=== PATIENT | female | born 1960 | race American Indian/Alaskan Native ===

== ENCOUNTER 2018-03-09 15:15 | Outpatient (CLI) | payer OTHER | END 2018-03-09 15:16 | disposition home or self-care (01) | LOC: LABHHL 15:15 | PROVIDERS: ATTEND Surgery | DX: N63.21 Unspecified lump in the left breast, upper outer quadrant (principal) | CPT/HCPCS: 88112; 88305; 88342; 88361 ==

== ENCOUNTER 2018-04-20 15:24 | Inpatient (IN) | payer OTHER ==
--- NOTE | 2018-04-19 13:15 | Anesthesia Consultation ---
Anesthesia Consult and Med Hx Date of service: 04/19/18 - Airway Anesthetic Teeth Evaluation: Good, Poor ROM Head & Neck: Adequate Mental/Hyoid Distance: Adequate Mallampati Class: Class II Intubation Access Assessment: Probably Good - Pulmonary Exam CTA: Yes - Cardiac Exam Cardiac Exam: RRR - Pre-Operative Health Status ASA Pre-Surgery Classification: ASA3 Proposed Anesthetic Plan: General - Cardiovascular System Hx Hypertension: No Hx Cardia Arrhythmia: No - Central Nervous System Hx Neuromuscular Disorder: No - Endocrine Hx Thyroid Disease: Yes Hx Hypothyroidism: Yes - Hematic Hx Sickle Cell Disease: Yes (sickle cell trait) - Other Systems Hx Cancer: Yes (breast cancer)
--- NOTE | 2018-04-19 13:16 | Anesthesia Day of Surgery ---
Anesthesia Day of Surgery - Day of Surgery Patient H&P Reviewed: Yes Patient is NPO: Yes Beta Blockers: No Cardiac Clearance: No Pulmonary Clearance: No
[~2018-04-20 15:24] MED LIST: LACTATED RINGERS 1,000 ML IV SCH
[2018-04-20 16:32] LABS: Hematocrit 30.3 % (30.3-42.9); Hemoglobin 10.5 gm/dl (10.1-14.3); Mean Corpuscular HGB Conc 35 % (30-34); Mean Corpuscular Hemoglobin 33 pg (28-32); Mean Corpuscular Volume 95 fl (79-97); Platelet Count 190 K/mm3 (140-440); Red Blood Count 3.21 M/mm3 (3.65-5.03); Red Cell Distribution Width 14.3 % (13.2-15.2)
[2018-04-20] MEDS ORDERED: MORPHINE IV PRN (16:36)
[2018-04-20] MEDS ORDERED: SODIUM CHLORIDE FLUSH SYRINGE 10 ML IV PRN (16:36)
[2018-04-20] MEDS ORDERED: ZOFRAN IV PRN (16:36)
[2018-04-20] MEDS ORDERED: PERCOCET 5/325 PO PRN (16:36)
[2018-04-20] MEDS ORDERED: TYLENOL PO PRN (16:36)
[2018-04-20 16:48] LABS: Alanine Aminotransferase 15 units/L (7-56); Albumin 4.3 g/dL (3.9-5); BUN/Creatinine Ratio 14; Blood Urea Nitrogen 13 mg/dL (7-17); Calcium 9.8 mg/dL (8.4-10.2); Hemolysis Index 4
[2018-04-20 17:09] LABS: Basophils % (Auto) 0.8 % (0.0-1.8); Eosinophils # (Auto) 0.1 K/mm3 (0.0-0.4); Eosinophils % (Auto) 1.9 % (0.0-4.3); Hematocrit 30.1 % (30.3-42.9); Hemoglobin 10.6 gm/dl (10.1-14.3); Lymphocytes % (Auto) 17.9 % (13.4-35.0); Mean Corpuscular HGB Conc 35 % (30-34); Mean Corpuscular Hemoglobin 33 pg (28-32); Mean Corpuscular Volume 94 fl (79-97); Monocytes # (Auto) 0.4 K/mm3 (0.0-0.8); Platelet Count 189 K/mm3 (140-440); Red Cell Distribution Width 14.1 % (13.2-15.2)
[2018-04-20] MEDS: D5NS 1,000 ML IV SCH (18:10)
[2018-04-20] MEDS: PEPCID PO SCH (21:51)
[2018-04-20] MEDS: SODIUM CHLORIDE FLUSH SYRINGE 10 ML IV SCH (21:52)
--- NOTE | 2018-04-20 23:13 | Event Note ---
Date: 04/20/18 See history and physical in the reports Severe hypothyroidism Left breast cancer due for mastectomy on April [address] Solitario
--- NOTE | 2018-04-21 00:19 | History and Physical Report ---
CHIEF COMPLAINT: Very high TSH in the 90s. HISTORY OF PRESENT ILLNESS: A 58-year-old female with recently diagnosed with breast cancer sent in for her severe hypothyroidism. The patient has history of hypothyroidism, but stopped taking her Synthroid pill for the last about 1 year. The patient was on Synthroid 400 mcg. The patient felt that it was not necessary and stopped the Synthroid pill. Of late, the patient has been feeling weak. Her PCP is Dr. Babcock, did her labs and the TSH was in the mid-90s. Hence, the patient was sent here for IV Synthroid. Other than feeling weak and increasing fatigue, the patient does not have any other symptoms. PAST MEDICAL HISTORY: Past medical history is significant for hypothyroidism, left breast cancer and hyperpigmentation of the right neck. CURRENT MEDICATIONS: Synthroid 100 mcg, which she is not taking. PAST SURGICAL HISTORY: None. Due for left breast mastectomy on 04/25/2018. FAMILY HISTORY: No hypertension. SOCIAL HISTORY: She does not smoke. No alcohol, no recreational drugs. REVIEW OF SYSTEMS: Review of systems is significant for feeling weak and tired easily. Otherwise, review of systems is negative. Also, has a left breast mass. PHYSICAL EXAMINATION: GENERAL: Elderly female, cooperative during examination. VITAL SIGNS: Blood pressure is 98/72, temperature is 97.9, pulse is 56 and 62, blood pressure is 105/63. HEENT: Unremarkable. NECK: Supple, no lymphadenopathy, no thyromegaly. LUNGS: Are clear to auscultation and percussion. Good air entry. CARDIOVASCULAR: S1, S2 heard, no gallop, no murmur, no rub. Apical impulse in left fifth intercostal space and midclavicular line. ABDOMEN: Soft and benign. No hepatosplenomegaly. No guarding, no rigidity. Hernial orifices are normal. EXTREMITIES: Good pedal pulses. No pedal edema. CENTRAL NERVOUS SYSTEM: Alert and oriented x 4, nonfocal examination. LABORATORY DATA: White count is 5500, H and H is 10.6 and 30.1, MCH is 33, MCHC 35. Sodium is 140, potassium is 4.8, chloride is 101.9, bicarbonate is 28. BUN and creatinine is 13 and 0.9. Total protein is 8.7. TSH is 91.110. Free T4 is 0.39. ASSESSMENT AND PLAN: 1. Severe hypothyroidism. The patient started on IV Synthroid and p.o. Synthroid at the same time. Monitor TSH. The patient to be discharged when TSH is at least in the high single digits. 2. Skin hyperpigmentation. The patient to be treated with cortisone cream. 3. Left breast cancer. The patient is due for mastectomy on Monday. The patient needs medical clearance and discharge before Monday. The patient to follow with Dr. Solitario. 4. Deep venous thrombosis prophylaxis. Lovenox 40 mg subcutaneous daily. JOB# [id number] GWS/NTS
[2018-04-21] MEDS: D5NS 1,000 ML IV SCH (03:17)
[2018-04-21] MEDS: SYNTHROID IV SCH (06:16)
--- NOTE | 2018-04-21 08:11 | Progress Note ---
Assessment and Plan Assessment and plan: 58-year-old female with medical history significant for recently diagnosed breast cancer, hypothyroidism was sent from her primary care physician for the management of hypothyroidism. Patient has history of hypothyroidism and was not taking her Synthroid. Her TSH at presentation was 91. Patient's complaint is feeling tired. Patient has hyperpigmentation on the neck Severe hypothyroidism - Patient is on IV Synthroid - TSH level is in the mid 90s - I am not expecting a dramatic TSH change immediately, so I'll discharge her once her symptoms are relieved - Patient is currently on IV Synthroid, will change to by mouth Synthroid Hyperpigmentation on the neck - Patient is on cortisone cream Bradycardia - Due to hypothyroidism Breast cancer - patient is followed by Dr Solitario and will have surgery as an O/P Malnutrition - We'll put nutrition consult DVT prophylaxis - On Lovenox Disposition - Continue inpatient care, if symptoms improved we'll discharge her tomorrow with by mouth levothyroxine History Interval history: Patient was seen and evaluated this morning, patient didn't have any complaints. Hospitalist Physical - Physical exam Narrative exam: Not in cardiopulmonary distress. The patient appeared well nourished and normally developed. Vital signs as documented. Head exam is unremarkable. No scleral icterus . Neck is without jugular venous distension, thyromegaly, or carotid bruits. Lungs are clear to auscultation. Cardiac exam reveals regular rate and Rhythm. First and second heart sounds normal. No murmurs, rubs or gallops. Abdominal exam reveals normal bowel sounds, no masses, no organomegaly and no aortic enlargement. Extremities are nonedematous and both femoral and pedal pulses are normal. BRONZE CHASER: Alert and oriented 3. No focal weakness. - Constitutional Vitals: Temp Pulse Resp BP Pulse Ox 97.9 F 54 L 19 102/65 98 04/21/18 06:01 04/21/18 06:01 04/21/18 06:01 04/21/18 06:01 04/21/18 06:01 Results - Labs CBC & Chem 7: 04/20/18 16:00 04/20/18 15:57 Labs: Laboratory Last Values WBC 5.5 K/mm3 (4.5-11.0) 04/20/18 16:00 RBC 3.20 M/mm3 (3.65-5.03) L 04/20/18 16:00 Hgb 10.6 gm/dl (10.1-14.3) 04/20/18 16:00 Hct 30.1 % (30.3-42.9) L 04/20/18 16:00 MCV 94 fl (79-97) 04/20/18 16:00 MCH 33 pg (28-32) H 04/20/18 16:00 MCHC 35 % (30-34) H 04/20/18 16:00 RDW 14.1 % (13.2-15.2) 04/20/18 16:00 Plt Count 189 K/mm3 (140-440) 04/20/18 16:00 Lymph % (Auto) 17.9 % (13.4-35.0) 04/20/18 16:00 [place] % (Auto) 8.0 % (0.0-7.3) H 04/20/18 16:00 Eos % (Auto) 1.9 % (0.0-4.3) 04/20/18 16:00 Baso % (Auto) 0.8 % (0.0-1.8) 04/20/18 16:00 Lymph # 1.0 K/mm3 (1.2-5.4) L 04/20/18 16:00 [place] # 0.4 K/mm3 (0.0-0.8) 04/20/18 16:00 Eos # 0.1 K/mm3 (0.0-0.4) 04/20/18 16:00 Baso # 0.0 K/mm3 (0.0-0.1) 04/20/18 16:00 Seg Neutrophils % 71.4 % (40.0-70.0) H 04/20/18 16:00 Seg Neutrophils # 3.9 K/mm3 (1.8-7.7) 04/20/18 16:00 Sodium 140 mmol/L (137-145) 04/20/18 15:57 Potassium 4.8 mmol/L (3.6-5.0) 04/20/18 15:57 Chloride 101.9 mmol/L (98-107) 04/20/18 15:57 Carbon Dioxide 28 mmol/L (22-30) 04/20/18 15:57 Anion Gap 15 mmol/L 04/20/18 15:57 BUN 13 mg/dL (7-17) 04/20/18 15:57 Creatinine 0.9 mg/dL (0.7-1.2) 04/20/18 15:57 Estimated GFR > 60 ml/min 04/20/18 15:57 BUN/Creatinine Ratio 14 % 04/20/18 15:57 Glucose 88 mg/dL (65-100) 04/20/18 15:57 Hemoglobin A1c 5.3 % (4-6) 04/20/18 16:00 Calcium 9.8 mg/dL (8.4-10.2) 04/20/18 15:57 Phosphorus 2.70 mg/dL (2.5-4.5) 04/20/18 15:57 Magnesium 2.30 mg/dL (1.7-2.3) 04/20/18 15:57 Total Bilirubin 0.60 mg/dL (0.1-1.2) 04/20/18 15:57 AST 30 units/L (5-40) 04/20/18 15:57 ALT 15 units/L (7-56) 04/20/18 15:57 Alkaline Phosphatase 77 units/L (35-129) 04/20/18 15:57 Total Protein 8.7 g/dL (6.3-8.2) H 04/20/18 15:57 Albumin 4.3 g/dL (3.9-5) 04/20/18 15:57 Albumin/Globulin Ratio 1.0 % 04/20/18 15:57 TSH 96.310 mlU/mL (0.270-4.200) H 04/20/18 23:59 Free T4 0.39 ng/dL (0.76-1.46) L 04/20/18 18:15
[2018-04-21] MEDS: PEPCID PO SCH ×2 (09:32→21:21)
[2018-04-21] MEDS: SODIUM CHLORIDE FLUSH SYRINGE 10 ML IV SCH ×2 (09:32→21:22)
[2018-04-21] MEDS ORDERED: NON-FORMULARY (Anastrozole [Arimidex] 1 MG) PO SCH (10:00)
[2018-04-21] MEDS ORDERED: SYNTHROID PO SCH (10:00)
[2018-04-21] MEDS ORDERED: LOVENOX SUB-Q SCH (22:00)
[2018-04-22 06:11] VITALS: BP 121/71
[2018-04-22] MEDS: SYNTHROID IV SCH (06:22)
--- NOTE | 2018-04-22 07:23 | Discharge Summary ---
Providers - Providers Date of Admission: 04/20/18 15:24 Attending physician: DANISH ARTHUR MD 04/20/18 Consult to Case Management [CONS] Routine Services Needed at Discharge: Methods Study Analyst Notified:: moo 04/21/18 08:14 Consult to Dietitian/Nutrition [CONS] Routine Physician Instructions: Reason For Exam: Reason for Consult: Malnutrition Primary care physician: GARY VEGA Hospitalization Reason for admission: Hypothyroidism Disposition: DC-01 TO HOME OR SELFCARE Time spent for discharge: 35 minutes - Discharge Diagnoses (1) Hypothyroidism (acquired) Status: Acute (2) Breast cancer Status: Acute Core Measure Documentation - Palliative Care Palliative Care/ Comfort Measures: Not Applicable - Core Measures Any of the following diagnoses?: none Exam - Physical Exam Narrative exam: Not in cardiopulmonary distress. The patient appeared well nourished and normally developed. Vital signs as documented. Head exam is unremarkable. No scleral icterus . Neck is without jugular venous distension, thyromegaly, or carotid bruits. Lungs are clear to auscultation. Cardiac exam reveals regular rate and Rhythm. First and second heart sounds normal. No murmurs, rubs or gallops. Abdominal exam reveals normal bowel sounds, no masses, no organomegaly and no aortic enlargement. Extremities are nonedematous and both femoral and pedal pulses are normal. RAMP FLIGHT ATTENDANT: Alert and oriented 3. No focal weakness. - Constitutional Vitals: Temp Pulse Resp BP Pulse Ox 97.7 F 49 L 18 121/71 100 04/22/18 06:00 04/22/18 06:00 04/22/18 06:00 04/22/18 06:00 04/22/18 06:00 Plan Activity: no restrictions Weight Bearing Status: Full Weight Bearing Diet: regular Follow up with: GARY VEGA [Primary Care Provider] - 7 Days Prescriptions: Levothyroxine [Synthroid] 100 mcg PO QAM #30 tablet
[2018-04-22] MEDS: SODIUM CHLORIDE FLUSH SYRINGE 10 ML IV SCH (09:18)
[2018-04-22] MEDS: PEPCID PO SCH (09:18)
== END 2018-04-22 11:35 | disposition home or self-care (01) | DRG 644 ==
LOC: 3A 15:24 → EDSTATUS 04-25 10:00
PROVIDERS: ADMIT Internal Medicine; ATTEND Internal Medicine
DX: E03.9 Hypothyroidism, unspecified (principal); E46 Unspecified protein-calorie malnutrition; L91.9 Hypertrophic disorder of the skin, unspecified; L81.8 Other specified disorders of pigmentation; D57.3 Sickle-cell trait; R00.1 Bradycardia, unspecified; Z88.8 Allergy status to other drugs, medicaments and biological substances; Z88.5 Allergy status to narcotic agent; Z68.25 Body mass index [BMI] 25.0-25.9, adult; C50.912 Malignant neoplasm of unspecified site of left female breast
CPT/HCPCS: 36415; 80053; 83036; 83735; 84100; 84439; 84443; 85025; 85027; J1650; J7042

== ENCOUNTER 2018-08-23 08:41 | Outpatient (CLI) | payer OTHER ==
--- NOTE | 2018-08-27 12:15 | PET Report ---
PET/CT:08/23/18 08:41:00 CLINICAL: Left breast cancer restaging. RADIOPHARMACEUTICAL: 13.058mCi F18-FDG. COMPARISON: CT CAP 04/03/18 TECHNIQUE- Following intravenous injection of F-18 FDG and an approximately 60 minute uptake period, CT and PET images from the mid skull to the upper thighs were acquired with the patient in the fasted state. No contrast was administered. The CT protocol used for this PET CT study is designed for attenuation correction and anatomic localization of PET abnormalities. This qual field manager CT is not desired to produce and cannot replace, zutxt-gf-[id number]-art diagnostic CT scans with specific imaging protocols for different body parts and indications. Plasma glucose at the time of this test: 81g/dl. The standardized uptake values (SUV) are normalized to patient body weight and indicate the highest activity concentration (SUV max) in a given disease site. FINDINGS: Brain--Physiologic FDG uptake in the visualized regions of the brain. Neck--Physiologic FDG uptake in mucosal structures. No mass or lymphadenopathy. Chest--Physiologic FDG uptake in mediastinal blood pool and myocardium. Status post left mastectomy. Lungs--Too many to count bilateral multilobar FDG avid lung nodules and masses have developed since the last exam. The largest is in the left lower lobe and measures 3.2 x 2.5 cm with SUV 10.2. The most FDG avid is in the left upper lobe and measures 2.4 x 2.0 cm with SUV 14.8. Pleura/pericardium--No abnormal uptake. Thoracic nodes--A 2.3 x 1.7 cm FDG avid retrocaval pretracheal lymph node with SUV 10.8. An FDG avid left lower lobe hilar lymph node measures 2.1 x 1.6 cm with SUV 15.3. Hepatobiliary--No abnormal uptake. Liver background SUV mean, as a reference for comparing FDG studies, is 3.05. A stable 1 cm left hepatic benign cyst. No liver mass. Spleen--No abnormal uptake. Pancreas--No abnormal uptake. Adrenal Glands--No abnormal uptake. Kidneys/Ureters/Bladder--No abnormal uptake. Abdominopelvic Nodes--No abnormal uptake. Bowel/Peritoneum/Mesentery--No abnormal uptake. A round 1 cm non-FDG avid right upper quadrant mesenteric cyst adjacent to the hepatic flexure of the colon. Pelvic organs--No abnormal uptake. Bones/Soft Tissues--No abnormal uptake and no suspicious bone lesion. IMPRESSION- 1. Interval development of extensive pulmonary metastasis, mediastinal oliva and bilateral pulmonary hilar oliva metastasis. 3. No evidence of hepatic or skeletal metastasis.
== END 2018-08-23 08:42 | disposition home or self-care (01) ==
LOC: PET 08:41
PROVIDERS: ATTEND Internal Medicine Hematology & Oncology
DX: C78.00 Secondary malignant neoplasm of unspecified lung (principal); C50.112 Malignant neoplasm of central portion of left female breast
CPT/HCPCS: 78815; 82962; A9552

== ENCOUNTER 2018-10-18 08:16 | Outpatient (CLI) | payer OTHER ==
--- NOTE | 2018-10-18 12:15 | PET Report ---
PET/CT:10/18/18 08:16:00 CLINICAL: Breast cancer restaging. RADIOPHARMACEUTICAL: 14.832mCi F18-FDG. COMPARISON: 08/23/18 PET/CT TECHNIQUE- Following intravenous injection of F-18 FDG and an approximately 60 minute uptake period, CT and PET images from the mid skull to the upper thighs were acquired with the patient in the fasted state. No contrast was administered. The CT protocol used for this PET CT study is designed for attenuation correction and anatomic localization of PET abnormalities. This base engineer CT is not desired to produce and cannot replace, jidpr-kk-fth-art diagnostic CT scans with specific imaging protocols for different body parts and indications. Plasma glucose at the time of this test: 106g/dl. The standardized uptake values (SUV) are normalized to patient body weight and indicate the highest activity concentration (SUV max) in a given disease site. FINDINGS: Brain--Physiologic FDG uptake in the visualized regions of the brain. Neck--Physiologic FDG uptake in mucosal structures. No mass or lymphadenopathy of the neck. Chest--Physiologic FDG uptake in mediastinal blood pool and myocardium. Status post left mastectomy and left axillary lymph node dissection. Lungs--Too numerous to count bilateral multilobar pulmonary masses have increased in size and number. FDG avid left upper lobe mass measures 4.3 x 3.8 cm with SUV 17.7 compared to 2.5 x 2.0 cm and SUV 14.8 on the last exam. Confluent masses in the lingula measures 6.7 x 6.4 cm. A new pleural-based right lower lobe mass measures 4.0 x 3.5 cm with SUV 12.4. Pleura/pericardium--No abnormal uptake. No pleural effusion. Thoracic nodes--FDG evident mediastinal lymph nodes are stable in number. The retrocaval pretracheal lymph node measures 2.2 x 2.1 cm with SUV 10.4 compared to 13.6 on the last exam. Hepatobiliary--New FDG evident medial segment left hepatic mass measures 1.8 x 1.6 cm with SUV 18.8. Liver background SUV mean, as a reference for comparing FDG studies, is 1.9 compared to 2.9 on the last exam. Spleen--No abnormal uptake. Pancreas--No abnormal uptake. Adrenal Glands--No abnormal uptake. Kidneys/Ureters/Bladder--No abnormal uptake. Abdominopelvic Nodes--No abnormal uptake. Bowel/Peritoneum/Mesentery--No abnormal uptake. Pelvic organs--No abnormal uptake. Bones/Soft Tissues--No abnormal uptake and no suspicious bone lesions. IMPRESSION- Progression of disease with increased size and number of too numerous to count pulmonary metastases and a new left hepatic metastasis. No evidence of skeletal metastasis.
== END 2018-10-18 08:17 | disposition home or self-care (01) ==
LOC: PET 08:16
PROVIDERS: ATTEND Internal Medicine Hematology & Oncology
DX: C50.112 Malignant neoplasm of central portion of left female breast (principal); E03.9 Hypothyroidism, unspecified
CPT/HCPCS: 78815; 82962; A9552